=== PATIENT | female | born 2000 | race Two or more races ===

== ENCOUNTER 2024-07-12 07:51 | Emergency (ER) | payer OTHER, SELFPAY ==
--- OUTSIDE RECORDS SUMMARY | 2024-07-12 07:54 | XMS_ITS | Clinical Summary ---
Author Organization [place] Address [address] [place] [address]. [place] [address] Care Team Providers Care Otr Driver Name Role Phone No Ref-Primary, Physician Primary Care Provider Allergies No known active allergies Medications No known medications Active Problems No known active problems Social History Tobacco Use Types Packs/Day Years Used Date Smoking Tobacco: Never Assessed Comments Unknown Sex and Gender Information Value Date Recorded Sex Assigned at Not on file Legal Sex Female 5:39 PM CDT Gender Identity Not on file Sexual Orientation Not on file Last Filed Vital Signs Vital Sign Reading Time Taken Comments Blood Pressure 105/59 09/25/2023 1:00 AM CDT Pulse 79 09/25/2023 1:00 AM CDT Temperature 37.6 C (99.6 F) 09/24/2023 5:44 PM CDT Respiratory Rate 17 09/24/2023 7:43 PM CDT Oxygen Saturation 98% 09/25/2023 1:00 AM CDT Inhaled Oxygen Concentration - - Weight 57.6 kg (126 lb 15.8 oz) 09/24/2023 5:44 PM CDT Height 160 cm (5' 3) 09/24/2023 5:44 PM CDT Body Mass Index 22.49 09/24/2023 5:44 PM CDT Plan of Treatment Health Maintenance Due Date Last Done Comments ADVANCE CARE PLANNING 2002 ANNUAL REVIEW OF HM ORDERS 2002 YEARLY PREVENTIVE VISIT 2005 DTAP/TDAP/TD VACCINE (1 - Tdap) 2009 HIV SCREENING 2017 HPV VACCINE (1 - 3-dose series) 2017 MENINGITIS B VACCINE (1 of 2 - Standard) 2018 HEPATITIS C SCREENING 2020 HEPATITIS B VACCINE (1 of 3 - 19+ 3-dose series) 2021 COVID-19 VACCINE (2 - 2023-2 5 season) 2023 11/23/2021 PHQ-2 (once per calendar year) 2024 CHLAMYDIA SCREENING 09/27/2024 09/28/2023 INFLUENZA VACCINE (Season Ended) 2024 12/02/2021, 10/14/2021 PAP 09/27/2026 09/28/2023 ZOSTER VACCINE (1 of 2) 2052 MENINGITIS VACCINE Aged Out No longer eligible based on patient's age to complete this topic PNEUMOCOCCAL VACCINE: PEDIATRICS (0 to 5 YEARS) AND AT-RISK PATIENTS (6 to 49 YEARS) Aged Out No longer eligible b ased on patient's age to complete this topic Procedures Procedure Name Priority Date/Time Associated Diagnosis Comments GYNECOLOGIC CYTOLOGY Routine 09/28/2023 2:28 PM CDT Encounter for screening for malignant neoplasm of cervix CHLAMYDIA TRACHOMATIS/NEISSERI A GONORRHOEAE BY PCR Routine 09/28/2023 2:28 PM CDT Encounter for screening for infections with a predominantly sexual mode of transmission from Last 3 Months or Most Recently Relevant to Health Maintenance Results * (ABNORMAL) Gynecologic Cytology (PAP) (09/28/2023 2:28 PM CDT) Interpretation Atypical squamous cells of undetermined significance (ASC-US)(A) 10/05/2023 11:12 AM CDT [facility] at 1112 CDT Comment Papanicolaou Test Limitations: Cervical cytology is a screening test with limited sensitivity, and regular screening is critical for cancer prevention. Pap tests are primarily effective for the diagnosis/preven tion of squamous cell carcinoma, not adenocarcinoma or other cancers. 10/05/2023 11:12 AM CDT LABORATORY Specimen Adequacy Satisfactory for evaluation, endocervical/tra nsformation zone component present 10/05/2023 11:12 AM CDT [facility] Clinical Information none 10/05/2023 11:12 AM CDT [facility] LMP/Menopause Date 08/21/2023 10/05/2023 11:12 AM CDT [facility] Reflex Testing Yes if ASCUS 10/05/19 11:12 AM CDT [facility] Previous Abnormal? No 10/05/2023 11:12 AM CDT [facility] Previous Abnormal Diagnosis Patient never had a pap smear done. 10/05/2023 11:12 AM CDT [facility] Performing Labs The technical component of this testing was completed at [facility]. Stain controls for all stains resulted within this report have been reviewed and show appropriate reactivity. 10/05/2023 11:12 AM CDT [facility] Brushing CERVIX UTERI STRUCTURE / Unknown Client Draw / Unknown 09/28/2023 2:28 PM CDT 09/28/2023 6:12 PM CDT Deann Oreilly MD LAB - SHARYN Car Re sult LABORATORY [facility] [address], [address] [place] [address], [facility] [phone] [facility] Specialty Lab [address] [facility], [address] [place] [address], [facility] * Chlamydia trachomatis/Neisseria gonorrhoeae by PCR (09/28/2023 2:28 PM CDT) Chlamydia Trachomatis Negative Negative 09/29/2023 12:37 PM CDT [facility] Comment: Negative for C. trachomatis rRNA by dental mechanic mediated amplification. A negative result by dental mechanic mediated amplification does not preclude the presence of infection because results are dependent on proper and adequate collection, absence of inhibitors and sufficient rRNA to be detected. Neisseria gonorrhoeae Negative Negative 09/29/2023 12:37 PM CDT [facility] Comment:Negative for N. gono rrhoeae rRNA by dental mechanic mediated amplification. A negative result by dental mechanic mediated amplification does not preclude the presence of C. trachomatis infection because results are dependent on proper and adequate collection, absence of inhibitors and sufficient rRNA to be detected. Swab CERVIX UTERI STRUCTURE / Unknown Non-blood Collection / Unknown 09/28/2023 2:28 PM CDT 09/28/2023 6:05 PM CDT Deann Oreilly MD LAB - MICRO GENERAL [place] [facility] Final Result [facility] Inf. Diseases Diag. Lab [address] [facility] [place] [address] from Last 3 Months or Most Recently Relevant to Health Maintenance Insurance [employer] Care Teams Otr Driver Relationship Specialty Start Date End Date No Ref-Primary, Physician PCP - General 09/24/23
[2024-07-12 08:01] VITALS: BP 107/70; PULSE 89; RESP 20; TEMP 36.8; O2SAT 96; BMI 20.4
--- NOTE | 2024-07-12 08:33 | ED_ITS ---
HPI - General Adult General Chief complaint: Cough Stated complaint: chest pain, difficulty breathing Time Seen by Provider: 07/12/24 08:00 History of Present Illness HPI narrative: Patient is a 23-year-old female who [address] [facility], has had a cough for the last week and a half, occasionally productive of whitish sputum. She has had no chronic respiratory problems, no asthma, no marked shortness of breath. No rigors or chills. No asthma history. She generally quite healthy. Denies . Review of Systems Status of ROS: Reports: 6 or more systems reviewed and unremarkable except as noted in History and below Exam Narrative: Exam Narrative: Objective: Vital signs within normal limits Alert orient x3 occasional cough noted Talks in even unlabored sentences No cyanosis HEENT is unremarkable Neck is supple chest is clear no rales or wheezing Extremities good perfusion Pulses regular Const: Vital Signs, click to edit/add: Vital Signs - 24 hr 07/12/24 08:01 Temperature 98.3 F Pulse Rate [Pulse Oximeter] 89 Respiratory Rate 20 Blood Pressure [Ri ght Upper Arm] 107/70 Pulse Oximetry 96 Oxygen Delivery Me thod Room Air Course Vital Signs Vital signs: Initial Vital Signs Temperature 98.3 F 07/12/24 08:01 Temperature Source Temporal Artery Scan 07/12/24 08:01 Pulse Rate 89 07/12/24 08:01 Respiratory Rate 20 07/12/24 08:01 Blood Pressure 107/70 07/12/24 08:01 Blood Pressure Mean 82 07/12/24 08:01 Pulse Oximetry 96 07/12/24 08:01 Oxygen Delivery Method Room Air 07/12/24 08:01 Vital Signs Temperature 98.3 F 07/12/24 08:01 Pulse Rate 89 07/12/24 08:01 Respiratory Rate 20 07/12/24 08:01 Blood Pressure 107/70 07/12/24 08:01 Pulse Oximetry 96 07/12/24 08:01 Oxygen Delivery Method Room Air 07/12/24 08:01 Temperature 98.3 F 07/12/24 08:01 Pulse Rate 89 07/12/24 08:01 Respiratory Rate 20 07/12/24 08:01 Blood Pressure 107/70 07/12/24 08:01 Pulse Oximetry 96 07/12/24 08:01 Oxygen Delivery Method Room Air 05/31/25 08:01 Medical Decision Making MDM Narrative Medical decision making narrative: 23-year-old female with likely bronchitis, likely viral. Lung exam is unremarkable, vital signs are stable, patient at this point would get a nasal triple swab, will give her prednisone 50 mg now and then start 20 b.i.d. for the next 5 days, she likely has an inflammatory nature to her bronchitis. Recommend fluids light activity recheck as needed. She was comfortable plan. Discharge Plan Discharge Clinical Impression: Bronchitis Patient Disposition: Home, Self-Care Condition: Stable Additional Instructions: Light activity, fluids on a regular basis, prednisone to start tomorrow because she got a full dose today in the ER, we will call you back with the results of your nasal swab. Return if not improving in next several days, sooner if problems or concerns. Activity Level: Light activity Discharge Diet: Regular Follow Up/Referrals: Provider,Not a Local [Primary Care Provider, Family Practice] Stand Alone Forms: [employer] Info Instructions
[2024-07-12] MEDS: predniSONE 10 MG TABLET 50 MG PO (08:37)
[2024-07-12 09:26] LABS: PCR FLU A Negative PCR FLU A (Negative); PCR FLU B Negative PCR FLU B (Negative); PCR RSV Negative PCR RSV (Negative); SARS PCR* Negative SARS-CoV-2 (Negative)
== END 2024-07-12 08:50 | disposition home or self-care (01) ==
LOC: ED 08:44
PROVIDERS: Emergency Provider Family Medicine
DX: J40 Bronchitis, not specified as acute or chronic (principal)
CPT/HCPCS: 87631; 99283; J7512